=== PATIENT | female | born 1970 | race Caucasian/White ===

== ENCOUNTER → 2024-05-17 13:18 | Outpatient (CLI) | payer OTHER, SELFPAY ==
--- NOTE | 2024-05-17 13:57 | DI.NM.S_ITS ---
DATE OF SERVICE: 05/17/2024 NUCLEAR CARDIOLOGY MYOCARDIAL PERFUSION STUDY Procedure: Pharmacologic vasodilator stress and rest myocardial perfusion imaging with gating to assess ejection fraction and regional wall motion. Ordering Provider: PAC. Amanda Indications: The patient is a 53-year-old obese female with atypical chest discomfort and lightheadedness. Cardiac Stress: Per protocol, 0.4 mg of regadenoson was infused with a fairly normal hemodynamic response. She had minimal dyspnea but no chest discomfort. Her resting ECG shows sinus rhythm with normal ST segments. There are no significant ST-segment shifts or arrhythmias with stress. Per protocol, 25.1 mCi of technetium-99m Myoview was injected and she was imaged 15 minutes later using a gated SPECT acquisition protocol. The day prior while at rest, she had been injected with 27.5 mCi of technetium-99m Myoview and was imaged 15 minutes later, again using a gated SPECT acquisition protocol. FINDINGS: 1. Raw data: There is fairly poor myocardial tracer uptake due to marked breast attenuation that clearly affects the interpretation. While the lung/heart ratio is elevated at 0.47, which can be a sign of pulmonary congestion, this is nonspecific, particularly with the use of vasodilator stress. The TID ratio is normal at 1.18. 2. Quantitative gated SPECT: Post-stress ejection fraction is estimated at 77% without any obvious focal wall motion abnormality although image quality is very poor. The resting ejection fraction is calculated at 63% yet visually appears very similar to that of the post-stress ejection fraction and also has very poor image quality. The resting end-diastolic volume is borderline enlarged at 119 mL. 3. Myocardial perfusion imaging: Post-stress supine images show a fairly normal myocardial perfusion pattern although with significant heterogeneity, likely due to breast attenuation. Specifically, there is reduced tracer activity in the distal anterior and anterolateral wall, but in a pattern that would be consistent with breast attenuation artifact, supported by significant improvement on the prone images, although still with tracer heterogeneity and a mild defect distally although more inferiorly than on the supine images. The resting images are slightly better quality with globally increased tracer intensity, but still with significant heterogeneity. While there is some improvement in the tracer activity in the distal anterolateral wall, this is nonspecific because of the poor image quality. IMPRESSION: 1. Probable normal myocardial perfusion study with fairly marked reduced sensitivity because of poor image quality due to breast attenuation artifact. 2. Predominantly fixed, but slightly reversible perfusion defect in the distal anterior and anterolateral wall that improves, although does not completely resolve on the prone images, but the defect now more focused inferiorly. This most likely reflects breast attenuation artifact although a small volume of ischemia cannot be entirely excluded. 3. Normal left ventricular systolic function without any obvious focal wall motion abnormality and probable borderline increased left ventricular volumes. 4. No angina or ECG evidence of ischemia with pharmacologic vasodilator stress. dd: 05/18/2024 16:53:00 dt: DICTATING MD/COPIES TO: Luigi Chapman MD
--- NOTE | 2024-05-21 10:41 | DI.NM.S_ITS ---
DATE OF SERVICE: 05/17/2024 NUCLEAR CARDIOLOGY MYOCARDIAL PERFUSION STUDY PROCEDURE: Pharmacologic vasodilator stress and rest myocardial perfusion imaging with gating to assess ejection fraction and regional wall motion. ORDERING PROVIDER: PAC. Amanda INDICATIONS: The patient is a 53-year-old obese female with atypical chest discomfort and lightheadedness. CARDIAC STRESS: Per protocol, 0.4 mg of regadenoson was infused with a fairly normal hemodynamic response. She had minimal dyspnea, but no chest discomfort. Her resting ECG showed sinus rhythm with normal ST segments. There are no significant ST-segment shifts or arrhythmias with stress. Per protocol, 25.1 mCi of technetium-99m Myoview was injected and she was imaged 15 minutes later using a gated SPECT acquisition protocol. The day prior while at rest, she had been injected with 27.5 mCi of technetium-99m Myoview and was imaged 15 minutes later, again using a gated SPECT acquisition protocol. FINDINGS: 1.Raw data: There is fairly poor myocardial tracer uptake due to fairly marked breast attenuation that clearly affects the interpretation. While the lung/heart ratio is elevated at 0.47, which can be a sign of pulmonary congestion, this is nonspecific, particularly with the use of vasodilator stress. The TID ratio is normal at 1.18. 2.Quantitative gated SPECT: Post-stress ejection fraction is estimated at 77% without any obvious focal wall motion abnormality, although image quality is very poor. The resting ejection fraction is calculated at 63%, although visually appears very similar to that of the post-stress ejection fraction and also has very poor image quality. Resting end-diastolic volume is borderline enlarged at 119 mL. 3.Myocardial perfusion imaging: Post-stress supine images show a fairly normal myocardial perfusion pattern, although with significant heterogeneity, likely due to breast attenuation and specifically with reduced tracer activity in the distal anterior and anterolateral wall, but in a pattern that would be consistent with breast attenuation artifact, supported by significant improvement on the prone images, although they continue to have some heterogeneity. The resting images are fairly better quality with globally increased tracer intensity, but still with significant heterogeneity. While there is some improvement in the tracer activity in the distal anterolateral wall, this is nonspecific because of the poor image quality. IMPRESSION: 1.Probable normal myocardial perfusion study with fairly marked reduced sensitivity because of very poor image quality due to breast attenuation artifact. 2.Predominantly fixed but slightly reversible perfusion defect in the distal anterior and anterolateral wall that improves, although does not completely resolve on the prone images, although with the defect now more focused inferiorly, but suggesting that the anterolateral defect is more likely breast attenuation artifact, although a small volume of ischemia cannot be entirely excluded. 3.Normal left ventricular systolic function without any obvious focal wall motion abnormality and probable borderline elevated left ventricular volumes. 4.No angina or ECG evidence of ischemia with pharmacologic vasodilator stress. Noel Bettye - RS/fn/AK doc#: [id number]/job#: [id number] dd: 05/18/2024 16:53:00 dt: 05/18/2024 21:29:00 DICTATING MD/COPIES TO: Luigi Chapman MD; BETTY Patel COPIES ASIFE: DEBORAH; ; Anaid Paez PAC
== END ==
PROVIDERS: Referring Provider Physician Assistant; Visit Provider Physician Assistant
DX: R07.89 Other chest pain (principal); R42 Dizziness and giddiness; E66.9 Obesity, unspecified; Z68.41 Body mass index [BMI] 40.0-44.9, adult
CPT/HCPCS: 78452; 93017; A9502; J2785